=== PATIENT | male | born 1965 | race Caucasian/White ===

== ENCOUNTER 2016-07-05 05:07 | Emergency (ER) | payer OTHER ==
[2016-07-05 05:37] VITALS: PULSE 113; TEMP 99.9; BMI 32.7
--- NOTE | 2016-07-05 05:43 | PDOC ---
History of Present Illness - General History Source: Patient Exam Limitations: No Limitations - History of Present Illness Initial Comments: 07/05/16 05:48 The patient is a 50 year old male with significant past medical history of asthma (as a childhood) who presents to the ED with several weeks of cough. Patient reports his cough is occasionally productive with clear sputum. Patient reports occasional SOB and states when coughs he has chest wall pain. He states smoking several years ago and quit. Patient states he lives in a very keke home. Denies any recent travels or sick contacts. The patient denies fever, chills, diaphoresis, chest pain, and palpitations. The patient denies abdominal pain, nausea, vomiting, and diarrhea. Allergies: NKDA Social History: Former smoker (quit several years ago). No alcohol or drug use reported. Past Surgical History: None reported PCP: Dr. Radha Mariano <Madhuri Dolan - Last Filed: 07/05/16 05:48> - General History Source: Patient <Lucio Farley - Last Filed: 07/05/16 07:06> - General Chief Complaint: Respiratory Stated Complaint: COUGH/SOB/PAIN Time Seen by Provider: 07/05/16 05:42 Past History <Madhuri Dolan - Last Filed: 07/05/16 05:48> - Past Medical History Asthma: Yes Other medical history: achilles tear - Psycho/Social/Smoking Cessation Hx Suicidal Ideation: No Smoking History: Current some day smoker Information on smoking cessation initiated: No <Lucio Farley - Last Filed: 07/05/16 07:06> - Past Medical History Allergies/Adverse Reactions: Allergies Allergy/AdvReac Type Severity Reaction Status Date / Time No Known Allergies Allergy Verified 07/05/16 05:34 Home Medications: Ambulatory Orders Albuterol 0.083% Nebulizer Briseida [Ventolin 0.083%] 1 neb NEB QID 07/05/16 Amlodipine Besylate [Norvasc -] 10 mg PO DAILY 07/05/16 Ibuprofen 800 mg PO TID #30 tablet 07/05/16 Losartan Potassium [Cozaar -] 50 mg PO DAILY 07/05/16 Methocarbamol [Robaxin -] 500 mg PO TID #30 tablet 07/05/16 Venlafaxine HCl ER [Effexor Xr -] 150 mg PO DAILY 07/05/16 Review of Systems - Review of Systems Able to Perform ROS?: Yes Comments:: 07/05/16 05:48 CONSTITUTIONAL: Absent: fever, no chills, no fatigue EYES: Absent: visual changes ENT: Absent: ear pain, no sore throat CARDIOVASCULAR: +chest wall pain Absent: chest pain, no palpitations RESPIRATORY: +cough, SOB GI: Absent: abdominal pain, no nausea, no vomiting, no constipation, no diarrhea GENITOURINARY: Absent: dysuria, no frequency, no hematuria MUSKULOSKELETAL: Absent: back pain, no arthralgia, no myalgia SKIN: Absent: rash NEURO: Absent: headache <Madhuri Dolan - Last Filed: 07/05/16 05:48> *Physical Exam - Vital Signs Last Vital Signs Temp Pulse Resp BP Pulse Ox 99.9 F H 113 H 22 172/102 100 07/05/16 05:36 07/05/16 05:36 07/05/16 05:36 07/05/16 05:36 07/05/16 05:36 - Physical Exam Comments: 07/05/16 05:48 GENERAL: Well-appearing, well-nourished. No apparent distress. HEENT: Normocephalic, atraumatic. PERRL, EOM intact. CARDIOVASCULAR: Normal S1, S2. Regular rate and rhythm. PULMONARY: Clear to auscultation bilaterally. ABDOMEN: Soft, non-distended, non-tender. EXTREMITIES: Normal ROM in all four extremities. No gross deformities. SKIN: Warm, dry. No rash NEUROLOGICAL: No focal neurological deficits. <Madhuri Dolan - Last Filed: 07/05/16 05:48> - Vital Signs Last Vital Signs Temp Pulse Resp BP Pulse Ox 99.9 F H 113 H 22 172/102 100 07/05/16 05:36 07/05/16 05:36 07/05/16 05:36 07/05/16 05:36 07/05/16 05:36 <Lucio Farley - Last Filed: 07/05/16 07:06> Medical Decision Making - Medical Decision Making 07/05/16 07:06 Dr. Farley: The scribe's documentation has been prepared under my direction and personally reviewed by me in its entirery. I confirm that the note above accurately reflects all work, treatment, procedures, and medical decision making performed by me. <Lucio Farley - Last Filed: 07/05/16 07:06> *DC/Admit/Observation/Transfer - Attestations Scribe Attestion: 07/05/16 05:48 Documentation prepared by Madhuri Dolan, acting as medical record retrieval specialist for Lucio Farley MD <Madhuri Dolan - Last Filed: 07/05/16 05:48> - Discharge Dispostion Admit: No <Lucio Farley - Last Filed: 07/05/16 07:06> Diagnosis at time of Disposition: Musculoskeletal chest pain - Discharge Dispostion Disposition: HOME Condition at time of disposition: Stable - Referrals Referrals: Radha Mariano MD [Primary Care Provider] - Geo Schulte MD [Staff Physician] - - Patient Instructions Printed Discharge Instructions: DI for Musculoskeletal Pain
[2016-07-05] MEDS ORDERED: METHOCARBAMOL 500 MG TABLET PO ONE (07:04)
[2016-07-05] MEDS ORDERED: IBUPROFEN 400 MG TABLET (FP) PO ONE ×2 (07:04→07:05)
[2016-07-05] MEDS ORDERED: METHOCARBAMOL 500 MG TABLET ONE (07:05)
[2016-07-05 07:10] VITALS: BP 153/95
== END 2016-07-05 07:10 | disposition home or self-care (01) ==
LOC: JER 05:07
DX: M79.1 Myalgia (principal); F17.210 Nicotine dependence, cigarettes, uncomplicated
CPT/HCPCS: 71020-TC; 99281-25